=== PATIENT | female | born 1990 | race Caucasian/White ===

== ENCOUNTER → 2017-05-14 | Outpatient (CLI) | payer OTHER ==
[2017-05-14 13:18] LABS: BASO % 0.1 %; BASO ABS # 0.01 K/uL (0-0.2); COMPLETE YES; EOS % 2.6 %; HEMATOCRIT 38.9 % (37-47); IG% 0.5 %; LYMPH % 22.1 %; LYMPH ABS # 1.71 K/uL (1.2-3.4); MEAN CELL VOLUME 87.2 fL (80-100); MEAN CORPUSCULAR HEMOGLOBIN 30.3 pg (25-34); MEAN CORPUSCULAR HGB CONC 34.7 g/dl (32-36); MEAN PLATELET VOLUME 11.6 fL (7.4-10.4); MONO % 7.8 %; NEUT % 66.9 %; PLATELET COUNT 245 K/uL (130-400); RED BLOOD COUNT 4.46 M/uL (4.2-5.4); WHITE BLOOD COUNT 7.74 K/uL (4.8-10.8)
[2017-05-14 15:04] LABS: URINE APPEARANCE CLEAR (CLEAR); URINE BILIRUBIN NEG (NEG); URINE COLOR DK YELLOW; URINE NITRITE NEG (NEG); URINE SPECIFIC GRAVITY 1.025 (1.000-1.030); UROBILINOGEN NEG (NEG)
[2017-05-14 15:13] LABS: MANUAL MICROSCOPIC REQUIRED? NO; REVIEW REQ? NO
== END | disposition home or self-care (01) ==
LOC: C.LAB1850 11:30
PROVIDERS: ATTEND Obstetrics & Gynecology
DX: Z34.01 Encounter for supervision of normal first pregnancy, first trimester (principal); Z3A.00 Weeks of gestation of pregnancy not specified

== ENCOUNTER → 2017-07-19 | Outpatient (CLI) | payer OTHER ==
[2017-07-19 19:04] LABS: GTGD 50 Grams
== END | disposition home or self-care (01) ==
LOC: C.LAB 17:24
PROVIDERS: ATTEND Obstetrics & Gynecology
DX: Z34.02 Encounter for supervision of normal first pregnancy, second trimester (principal); Z3A.00 Weeks of gestation of pregnancy not specified

== ENCOUNTER → 2017-10-11 | Outpatient (CLI) | payer OTHER ==
[2017-10-11 10:12] LABS: HEMATOCRIT 34.8 % (37-47)
== END | disposition home or self-care (01) ==
LOC: C.LAB1850 09:05
PROVIDERS: ATTEND Obstetrics & Gynecology
DX: Z34.03 Encounter for supervision of normal first pregnancy, third trimester (principal)

== ENCOUNTER → 2017-10-24 | Outpatient (CLI) | payer OTHER | END | disposition home or self-care (01) | LOC: C.LABSPEC 11:33 | PROVIDERS: ATTEND Obstetrics & Gynecology | DX: Z34.03 Encounter for supervision of normal first pregnancy, third trimester (principal) ==

== ENCOUNTER → 2017-12-06 | Outpatient (CLI) | payer OTHER | END | disposition home or self-care (01) | LOC: C.LABSPEC 17:48 | PROVIDERS: ATTEND Obstetrics & Gynecology | DX: Z34.03 Encounter for supervision of normal first pregnancy, third trimester (principal) ==

== ENCOUNTER 2018-01-04 03:03 | Inpatient (IN) | payer OTHER ==
[~2018-01-04] VITALS: Ht 182.9 cm; Wt 91.6 kg
[2018-01-04] MEDS ORDERED: LACTATED RINGER'S 1000ML 1,000 ML IV SCH (03:27)
[2018-01-04 03:51] LABS: HEMATOCRIT 37.1 % (37-47); HEMOGLOBIN 12.8 g/dL (12.0-16.0); MEAN CELL VOLUME 89.8 fL (80-100); MEAN CORPUSCULAR HGB CONC 34.5 g/dl (32-36); PLATELET COUNT 182 K/uL (130-400); RED CELL DISTRIBUTION WIDTH CV 13.3 % (11.5-14.5); RED CELL DISTRIBUTION WIDTH SD 43.6 fL (36.4-46.3); WHITE BLOOD COUNT 16.76 K/uL (4.8-10.8)
[2018-01-04] MEDS ORDERED: PRENTAB26 PO (04:07)
[2018-01-04 04:08] VITALS: Ht 182.9 cm; Wt 91.6 kg
[2018-01-04] MEDS ORDERED: OXYTOCIN 30 UNITS/500ML NSS IV ONE (06:47)
[2018-01-04] MEDS ORDERED: MoRPHine SULFATE 10 MG/ML CARP/VIAL ONE (07:50)
[2018-01-04] MEDS ORDERED: IBUPROFEN 600 MG TAB PO PRN (08:45)
[2018-01-04] MEDS ORDERED: HYDROCORTISONE ACETATE 25 MG SUPP PR PRN (08:45)
[2018-01-04] MEDS ORDERED: LANOLIN OINT EXT PRN (08:45)
[2018-01-04] MEDS ORDERED: OXYTOCIN 30 UNITS/500ML NSS IV PRN (08:45)
[2018-01-04] MEDS ORDERED: OXYCODONE/ACETAMINOPHEN 5-325 TAB PO PRN (08:45)
[2018-01-04] MEDS ORDERED: BENZOCAINE 20% AER SPR 82.5 GM CAN EXT PRN (08:45)
[2018-01-04] MEDS ORDERED: SUPERCREAM 0.870 % 15GM JAR EXT PRN (08:45)
--- NOTE | 2018-01-04 12:42 | DELIVERY SUMMARY ---
DATE OF OPERATION: 01/04/2018 PREDELIVERY DIAGNOSES: 1. A 27-year-old at 40 weeks 6 days. 2. Spontaneous labor. 3. Rh negative status. 4. Heterozygous factor V Leiden. 5. Asthma. 6. Depression with anxiety. POSTDELIVERY DIAGNOSES: 1. A 27-year-old at 40 weeks 6 days. 2. Spontaneous labor. 3. Rh negative status. 4. Heterozygous factor V Leiden. 5. Asthma. 6. Depression with anxiety. COMPLICATIONS: None. ESTIMATED BLOOD LOSS: 300 mL. FINDINGS: Viable male , Apgars 8 and 8, weight pending. Please see nursery records. Partial third degree perineal laceration and left periurethral laceration. DESCRIPTION OF DELIVERY: The patient presented in spontaneous labor and progressed to complete without epidural anesthesia. She then began to push. She spontaneously vaginally delivered a viable male from the cephalic presentation. The head delivered in the left occiput anterior position followed by the anterior and then posterior shoulder and then the body. No nuchal cord was noted. Baby was placed on the mother's abdomen and a spontaneous cry was heard. Delayed cord clamping was employed and after 1 minute and cessation of pulsation of the cord, the cord was doubly clamped and cut. Cord blood was obtained. The placenta was delivered spontaneously intact with a 3-vessel cord. Pitocin was given. The uterus and vagina were swept off all clots and debris. The uterus became firm. Cervix, vagina, and perineum were inspected and a partial third-degree perineal laceration was noted as well as a left periurethral. The perineal laceration was repaired by supporting the partially torn anal sphincter muscle with multiple [id number] sutures of 3-0 chromic. This was followed by standard repair of now second degree perineal laceration with 3-0 Vicryl in a running stitch. The left periurethral laceration was reapproximated by first inserting a red rubber catheter into the urethra for anatomical positioning and multiple [id number] stitches to obtain hemostasis. Prior to any of these stitches, lidocaine was injected for local anesthetic as well as the patient received 6 mg of morphine IV prior to the repair. At the conclusion of the repair, excellent hemostasis was noted. The mother and the baby tolerated the delivery well and they are recovering in the room in stable and good condition. Sponge, instrument, and needle counts were correct x2 at the conclusion of the delivery. I attest to the content of the Intraoperative Record and any orders documented therein. Any exception s are noted below.
[2018-01-04 16:20] VITALS: BP 101/71; PULSE 97; TEMP 37.3
[2018-01-04] MEDS: ACETAMINOPHEN 325 MG TAB PO PRN ×2 (16:44→22:50)
[2018-01-04 19:10] VITALS: BP 93/61; PULSE 92; TEMP 37.1; O2SAT 97
[2018-01-04] MEDS: DOCUSATE SODIUM 100 MG CAP PO SCH (20:47)
[2018-01-04 23:00] VITALS: BP 111/69; PULSE 74; TEMP 36.7; O2SAT 99
[2018-01-05 03:30] VITALS: BP 118/73; PULSE 82; TEMP 37.3; O2SAT 97
[2018-01-05] MEDS: ACETAMINOPHEN 325 MG TAB PO PRN ×3 (04:29→19:15)
[2018-01-05 07:07] LABS: HEMATOCRIT 34.1 % (37-47); HEMOGLOBIN 11.6 g/dL (12.0-16.0)
[2018-01-05 07:35] LABS: CREATININE 0.62 mg/dl (0.60-1.20)
[2018-01-05] MEDS ORDERED: ENOXAPARIN 40 MG/0.4 ML SYR SQ SCH (08:00)
[2018-01-05 08:15] VITALS: BP 113/76; PULSE 84; TEMP 37.1
--- NOTE | 2018-01-05 08:48 | Progress Note ---
Subjective January 05, 2018. Subjective conversation w/ patient, physical exam Feeding Type: Breast Feeding Objective Vital Signs Date Time Temp Pulse Resp B/P (MAP) Pulse Ox O2 Delivery O2 Flow Rate FiO2 01/05/18 03:30 37.3 82 16 118/73 (88) 97 Room Air 01/04/18 23:00 99 Room Air 01/04/18 23:00 36.7 74 16 111/69 (83) 99 Room Air 01/04/18 19:10 97 Room Air 01/04/18 19:10 37.1 92 16 93/61 (72) 97 Room Air 01/04/18 16:20 Room Air 01/04/18 16:20 37.3 97 16 101/71 (81) Room Air Physical Exam General Appearance: WELL-APPEARING, NO APPARENT DISTRESS Fundus: Firm, Non-Tender Extremities: no calf tenderness Laboratory Results Last 24 Hours Test 01/05/18 06:57 Hemoglobin 11.6 g/dL Hematocrit 34.1 % Prothrombin Time 10.2 SECONDS Prothromb Time International Ratio 1.0 Activated Partial Thromboplast Time 31.0 SECONDS Partial Thromboplastin Ratio 1.2 Creatinine 0.62 mg/dl Est Creatinine Clear Calc Drug Dose 174.8 ml/min Estimated GFR () 144.2 Estimated GFR (Non- 124.4 Assessment and Plan Post- Day#: 1 Continue Routine Care: - doing well - pt is heterozygous for Factor V - plan is to start the patient on Lovenox - pt has seen hematology and has medication at home - will Start 40mg today
[2018-01-05] MEDS ORDERED: LOVENOX TEACHING KIT PRN (09:00)
[2018-01-05] MEDS: DOCUSATE SODIUM 100 MG CAP PO SCH ×2 (09:03→19:15)
[2018-01-05] MEDS: ENOXAPARIN 40 MG/0.4 ML SYR SQ SCH (09:42)
[2018-01-05 12:00] VITALS: BP 108/71; PULSE 85; TEMP 37.1; O2SAT 97
[2018-01-05 16:20] VITALS: BP 108/71; PULSE 73; TEMP 37.2; O2SAT 97
[2018-01-05] MEDS ORDERED: BISACODYL 5 MG TABEC PO SCH (20:00)
[2018-01-06 00:30] VITALS: BP 110/74; PULSE 75; TEMP 37.3; O2SAT 97
[2018-01-06] MEDS: ACETAMINOPHEN 325 MG TAB PO PRN ×3 (01:04→15:28)
--- NOTE | 2018-01-06 06:49 | Progress Note ---
Subjective January 06, 2018. Subjective conversation w/ patient Ambulation: ambulating normally Voiding: no voiding problems Diet Tolerance: Regular Diet Lochia: Moderate Feeding Type: Breast Feeding Pain: Perineal pain reported - 3/10, improved with analgesia Review of Systems Constitutional: + problem reported (pt reports feeling lightheaded on ambulation, although states this is improving), No fever, No chills Cardiac: No chest pain Abdomen: No nausea, No vomiting Objective Vital Signs Date Time Temp Pulse Resp B/P (MAP) Pulse Ox O2 Delivery O2 Flow Rate FiO2 01/06/18 00:30 37.3 75 16 110/74 (86) 97 Room Air 01/06/18 00:30 97 Room Air 01/05/18 16:20 37.2 73 18 108/71 (83) 97 Room Air 01/05/18 16:20 Room Air 01/05/18 12:00 Room Air 01/05/18 12:00 37.1 85 18 108/71 (83) 97 Room Air 01/05/18 08:15 37.1 84 18 113/76 (88) Room Air 01/05/18 08:15 Room Air Physical Exam General Appearance: WELL-APPEARING, WD/WN, NO APPARENT DISTRESS Respiratory/Chest: lungs clear, normal breath sounds Cardiovascular: regular rate, rhythm Abdomen: soft Fundus: Firm, Non-Tender, Relation to Umbilicus (2 below) Extremities: no pedal edema, no calf tenderness Laboratory Results Last 24 Hours Test 01/05/18 06:57 Hemoglobin 11.6 g/dL Hematocrit 34.1 % Prothrombin Time 10.2 SECONDS Prothromb Time International Ratio 1.0 Activated Partial Thromboplast Time 31.0 SECONDS Partial Thromboplastin Ratio 1.2 Creatinine 0.62 mg/dl Est Creatinine Clear Calc Drug Dose 174.8 ml/min Estimated GFR () 144.2 Estimated GFR (Non- 124.4 Medications Current Inpatient Medications Medications (Trade) Dose Ordered Sig/Ai Route Start Time Stop Time Status Last Admin Dose Admin Oxytocin (Pitocin IV) 30 units UD PRN IV 01/04/18 08:45 02/03/18 08:44 Benzocaine (Dermoplast Aero Spr) 1 appln PRN PRN EXT 01/04/18 08:45 02/03/18 08:44 01/04/18 16:44 1 APPLN Cocaine HCl (Supercream 0.870% Cr) BID PRN EXT 01/04/18 08:45 01/18/18 08:44 01/04/18 16:45 15 GM Hydrocortisone Acetate (Anusol Hc Supp) 25 mg BID PRN FL 01/04/18 08:45 02/03/18 08:44 01/05/18 22:40 25 MG Lanolin (Lanolin Oint) PRN PRN EXT 01/04/18 08:45 02/03/18 08:44 Ibuprofen (Motrin Tab) 600 mg Q4H PRN PO 01/04/18 08:45 02/03/18 08:44 01/04/18 09:17 600 MG Acetaminophen (Tylenol Tab) 650 mg Q6H PRN PO 01/04/18 08:45 02/03/18 08:44 01/06/18 01:04 650 MG Oxycodone/ Acetaminophen (Percocet 5-325mg Tab) 1 tab Q4H PRN PO 01/04/18 08:45 01/18/18 08:44 Docusate Sodium (coLACE CAP) 100 mg BID PO 01/04/18 20:00 02/03/18 19:59 01/05/18 19:15 100 MG Enoxaparin Sodium (Lovenox Inj) 40 mg QAM SQ 01/05/18 08:00 02/04/18 07:59 01/05/18 09:42 40 MG Miscellaneous (Lovenox Teaching Kit) 1 ea PRN PRN N/A 01/05/18 09:00 02/04/18 08:59 01/05/18 09:49 1 EA Assessment and Plan Post- Day#: 2 Continue Routine Care: 27F s/p NVD with partial third degree laceration and periurethral laceration day 2 - of note, she is heterozygous for Factor V Leiden and has been started on Lovenox 40mg as of yesterday - A-, Rubella Immune, GBS -ve - rhesus immunoglobulin given - pt doing well clinically - Vital signs reviewed and WNL - Hemoglobin reviewed. 12.8 -> 11.6 - Encourage ambulation and breast feeding - Pt ready for d/c today and will be counselled on discharge instructions Resident Physician Supervision Note: I interviewed and examined the patient. Discussed with Dr. Perez and agree with findings and plan as documented in the note. Any exceptions or clarifications are listed here: D/C instructions given. Rx for Lovenox supplied by Hematology, they will manage Documented By: Zach Nugent Resident Tracking Resident Involvement: Resident Care Provided Care Provided: OB Delivery
[2018-01-06] MEDS ORDERED: LVNIS40 SQ (07:05)
--- NOTE | 2018-01-06 07:06 | Discharge Instructions ---
Discharge Instructions Date of Service January 06, 2018. Admission Reason for Admission: LABOR Discharge Discharge Diagnosis / Problem: Vaginal Delivery Discharge Goals Goal(s): Routine recovery after delivery Medications Continue Dispensed Medications: supercream, dermaplast, tucks, lansinoh Activity Recommendations Activity Limitations: per Instructions/Follow-up section . Instructions / Follow-Up Instructions / Follow-Up Please continue your lovenox injections for the duration recommended by hematology. ACTIVITY RECOMMENDATIONS: * Gradual return to full activity over the next 2-3 weeks. * No lifting - nothing heavier than baby over the next 2-3 weeks. * Do not engage in vigorous exercise, sexual activity or sports until cleared by your physician. * Do not drive or operate any motorized equipment until cleared by your physician. * You may shower/bathe daily. MEDICATIONS: For discomfort or pain, you may use Acetaminophen (Tylenol), Ibuprofen (Advil), or Naproxen (Aleve) following the package directions. For constipation you may use Colace following the package directions. BREAST CARE: If you are not breast feeding: * Wear a supportive bra 24 hours a day for one to two weeks. * Avoid stimulating your breasts and nipples as much as possible during the first few weeks after delivery. * When taking a shower, have the warm water hit your back, not breasts. * When your breasts feel full, apply ice packs. Usually three to four times a day helps ease the discomfort. * Take a mild pain medication (Tylenol / Motrin) when you are uncomfortable. If breast feeding: * Use breast milk to lubricate nipples. Lansinoh cream may be used for sore nipples. You do not need to remove cream prior to breast feeding. If using a different brand of cream, check the label for directions regarding removal of cream prior to nursing. * Wear a supportive bra. * If having problems with breasts or breast feeding, call a delivery consultant or your health care provider. EPISIOTOMY CARE: After delivery, if you have an episiotomy (stitches), the following steps will ease discomfort and aid healing. * For the first 24 hours after delivery, place ice packs next to your episiotomy to help reduce swelling. * After the first 24 hour-period, sitz baths, either portable or in the tub, are suggested. A shower with a shower arm sprayed over the episiotomy may be comforting. * Jayne care should be done after each voiding and bowel movement. Squirt warm water from a plastic bottle over the perineum (region of the body between the anus and urinary opening) and pat dry. * Use Dermoplast to ease discomfort. Shake container. [place] directly over the episiotomy. Place a Tucks on a clean sanitary pad next to your episiotomy. SPECIAL CARE INSTRUCTIONS: When you are discharged from the hospital, it is important for you to follow the instructions listed below: * During the first week at home, you should be able to care for yourself and your baby. In addition, the usual light household activities are encouraged. * Limit your activities to the way you feel. Do not try to clean the house or move furniture. Be sensible. * If you actively engage in sports and have done so up until the time of your delivery, you may resume these activities as soon as you feel able. This may take up to one month or even longer. Use good judgment. * Continue to take your vitamins for at least six weeks after the of your baby. * Your diet need not be limited unless you were on a special diet before your delivery. Breast-feeding mothers need around 2500 calories per day and at least 64-80 ounces of fluid per day (8 to 10 glasses). * You should eat foods from the four major food groups. Crash diets or fad diets are to be avoided. Eating lean meats, fresh fruits and vegetables, low-fat dairy products, high fiber foods and a regular exercise program, will help you get back to your pre- weight without putting your health at risk. * Constipation is sometimes a problem after delivery. Take a mild laxative as needed. If breast feeding, Milk of Magnesia is acceptable to use. You may use a suppository or Fleets enema if no episiotomy. * A daily shower or tub bath is suggested. Be sure to thoroughly and gently dry the perineum. * A bloody vaginal discharge will usually continue until around four weeks post . A small amount of bleeding may continue for as long as six weeks. Vaginal discharge changes from the bright red bleeding after delivery to pink then brownish and finally yellowish-pink before becoming white and disappearing. * Bleeding may increase with activity. Your first period may come in 4-8 weeks. If you are breast feeding, your period may be delayed even longer. * [place] (sex) can begin whenever both you and your partner feel comfortable and do not have any form of genital infection. It is recommended that you wait at least six weeks for internal and external healing to occur. If you have questions, please talk to your health care practitioner. A condom should be used to prevent infection and . * Foreplay, gentle intercourse and lubrication is very important the first several times to prevent pain. A water-based lubricant such as K-Y jelly or Astroglide may be used. * If you have RH negative blood and your baby is RH positive, you will receive RHOGAM by injection prior to discharge. The nurse will give you a card to keep with you that has the date and place that you received RHOGAM after delivery. * During your care, you had a Rubella screen done to check for the presence of rubella antibodies in your blood. If your test was negative, you will receive a Rubella vaccine prior to discharge. This vaccine may cause a fever, soreness at the injection site and flu-like symptoms. If these symptoms persist, notify your health care practitioner. is not advised for one month after a Rubella vaccine. * Verbalizes understanding of car seat law as reviewed with patient nursing. * Car Seat hand-out given and reviewed with patient by nursing. * Shaken baby information reviewed with patient by nursing. Call you doctor if: * Heavy bleeding (saturating several pads an hour) or passing clots the size of your fist. * A fever >101 degrees F (38.3 degrees C) on two occasions four hours apart and /or chills. * Unusual pain in the pelvic or vaginal areas. * "Baby Blues" lasting longer than two weeks. If you have any questions or concerns, call your health care practitioner at . FOLLOW UP VISIT: * Please call the office at to schedule a 6 week examination. It is important you keep this appointment. It is important for you to make arrangements for either yearly or twice yearly check-ups thereafter. Current Hospital Diet Patient's current hospital diet: Regular OB Diet Discharge Diet Recommended Diet: Regular Diet Pending Studies Studies pending at discharge: no Medical Emergencies . Who to Call and When: Medical Emergencies: If at any time you feel your situation is an emergency, please call 911 immediately. . Non-Emergent Contact Non-Emergency issues call your: Primary Care Provider . . "Provider Documentation" section prepared by Chikis Perez. .
[2018-01-06] MEDS: ENOXAPARIN 40 MG/0.4 ML SYR SQ SCH (08:08)
[2018-01-06] MEDS: DOCUSATE SODIUM 100 MG CAP PO SCH (08:14)
[2018-01-06 08:25] VITALS: BP 123/73; PULSE 69; TEMP 37.2
[2018-01-06 15:55] VITALS: BP 107/71; PULSE 94; TEMP 37.2
[2018-01-06 16:45] VITALS: BP_DIAS 71; PULSE 94; TEMP 37.2
== END 2018-01-06 16:45 | disposition home or self-care (01) | DRG 775 ==
LOC: C.OPB 03:03 → C.LD 03:03 → C.OPB 03:28 → C.LD 03:28 → C.OBG 15:45
PROVIDERS: ADMIT Obstetrics & Gynecology; ATTEND Obstetrics & Gynecology
PROC: 0DQR0ZZ Repair Anal Sphincter, Open Approach (ICD-10-PCS; principal; 2018-01-04)
PROC: 10E0XZZ Delivery of Products of Conception, External Approach (ICD-10-PCS; principal; 2018-01-04)
DX: O99.12 Other diseases of the blood and blood-forming organs and certain disorders involving the immune mechanism complicating childbirth (principal); D68.2 Hereditary deficiency of other clotting factors; O36.0131 Maternal care for anti-D [Rh] antibodies, third trimester, fetus 1; O99.344 Other mental disorders complicating childbirth; O99.52 Diseases of the respiratory system complicating childbirth; F32.9 Major depressive disorder, single episode, unspecified; F41.9 Anxiety disorder, unspecified; J45.909 Unspecified asthma, uncomplicated; O70.20 Third degree perineal laceration during delivery, unspecified; O71.82 Other specified trauma to perineum and vulva; Z37.0 Single live birth; Z3A.40 40 weeks gestation of pregnancy